=== PATIENT | female | born 1990 | race Hispanic/Latino ===

== ENCOUNTER → 2023-03-26 14:58 | Outpatient (REF) | payer OTHER, SELFPAY | LOC: PNTC 14:58 | PROVIDERS: ATTENDING PHYSICIAN Nurse Practitioner Family | DX: O36.80X0 Pregnancy with inconclusive fetal viability, not applicable or unspecified (principal) | CPT/HCPCS: 76801; 76813 ==

== ENCOUNTER → 2023-05-22 09:20 | Outpatient (REF) | payer OTHER, SELFPAY | LOC: PNTC 09:20 | PROVIDERS: ATTENDING PHYSICIAN Obstetrics & Gynecology | DX: Z36.0 Encounter for antenatal screening for chromosomal anomalies (principal); Z36.82 Encounter for antenatal screening for nuchal translucency | CPT/HCPCS: 76811 ==

== ENCOUNTER → 2023-06-19 11:03 | Outpatient (REF) | payer OTHER, SELFPAY | LOC: PNTC 11:03 | PROVIDERS: ATTENDING PHYSICIAN Obstetrics & Gynecology | DX: O98.519 Other viral diseases complicating pregnancy, unspecified trimester (principal); U07.1 COVID-19 | CPT/HCPCS: 76816 ==

== ENCOUNTER → 2023-07-30 11:17 | Outpatient (REF) | payer OTHER, SELFPAY | LOC: PNTC 11:17 | PROVIDERS: ATTENDING PHYSICIAN Obstetrics & Gynecology | DX: O98.519 Other viral diseases complicating pregnancy, unspecified trimester (principal) | CPT/HCPCS: 76816 ==

== ENCOUNTER 2023-08-19 19:55 | Observation (INO) | payer OTHER, SELFPAY ==
[2023-08-19] VITALS (9 sets, daily range): BP systolic 82–116; BP diastolic 45–83; BMI 29.5
[2023-08-19 13:29] LABS: % Basophils 0.2 % (0-2); % Eosinophils 0.1 % (0-6); % Immature Granulocytes 1.7 % (0-0.5); % Lymphocytes 18.2 % (20.5-51.1); % Monocytes 7.1 % (1.7-9.3); % Neutrophils 72.7 % (42.2-75.2); Absolute Immature Granulocytes 0.2 10^3/uL (0-0.05); Absolute Lymphocytes 1.6 10^3/uL (1.2-3.4); Absolute Monocytes 0.6 10^3/uL (0.1-0.6); Absolute Neutrophils 6.3 10^3/uL (1.4-6.5); Hematocrit 30.8 % (37.0-47.0); Hemoglobin 10.7 g/dL (12.0-16.0); Mean Corp Hgb Conc. 34.7 g/dL (33.0-37.0); Mean Corpuscular Hgb 27.5 pg (27.0-31.0); Mean Corpuscular Volume 79.2 fL (81.0-99.0); Mean Platelet Volume 10.3 fL (7.4-10.4); Nucleated Red Blood Cells % 0 %; Platelet Count 192 10^3/uL (130-400); Red Blood Cell Count 3.89 10^6/uL (4.20-5.40); Red Cell Dist. Width 12.8 % (11.5-14.5); White Blood Cell Count 8.6 10^3/uL (4.8-10.8)
[2023-08-19 13:35] LABS: ALT (SGPT) 16 U/L (0-35); AST (SGOT) 22 U/L (14-36); Albumin 3.3 g/dl (3.5-5.0); Alkaline Phosphatase 117 U/L (38-126); Blood Urea Nitrogen 8 mg/dl (7-17); Calcium 8.9 mg/dl (8.4-10.2); Carbon Dioxide 21 mmol/L (22-30); Chloride 106 mmol/L (98-107); Estimated Creatinine Clearance 124 ml/min; Glucose 98 mg/dl (70-99); Potassium 3.9 mmol/L (3.5-5.1); Sodium 134 mmol/L (135-145); Total Bilirubin 0.3 mg/dl (0.2-1.3); Total Protein 5.9 g/dl (6.3-8.2); eGFR > 60.00
[2023-08-19] MEDS: SOLU-CORTEF 200 MG IV (17:51)
[2023-08-19] MEDS: BENADRYL 50 MG IV (17:52)
--- NOTE | 2023-08-19 19:27 | ED.GENMED ---
History of Present Illness
General
Chief Complaint: Breathing Problem
Source: patient
Exam Limitations: altered mental status
Time Seen by Provider: 08/19/23 12:49
History of Present Illness
History of Present Illness:
Patient to ED with complaint of worsening SOB. States symptoms started 'weeks ago'. She was evaluated by PCP and OB without abnormal findings. SHe now reports intermittent CP and dizziness with SOB. Brought self to ED for eval. SHe is 35 weeks
.
Past History
Past History
ED Past Medical History: Seizures
ED Past Surgical History: None
Social History
Tobacco: Smoker
Alcohol: Occasional
Drug: None
Personal: Single
Living: with family
Review of Systems
Review of Systems
Allergies reviewed?: Yes
All Other Systems: ROS reviewed and negative except as documented in HPI and ROS
Constitutional: Reports no symptoms
EENT: Reports no symptoms
Respiratory: Reports trouble breathing
Cardiac: Reports chest pain
ABD/GI: Reports no symptoms
: Reports no symptoms
Musculoskeletal: Reports no symptoms
Skin: Reports no symptoms
Neurological: Reports no symptoms
Psychiatric: Reports no symptoms
Phy Exam
General Physical Exam
General Presentation: well appearing and no apparent distress
General age: appears stated age
General Skin: warm
General Habitus: normal
Cardiovascular Exam
Cardiovascular Exam: regular rate/rhythm and no edema
Pulmonary Exam
Pulmonary Exam: lungs clear and no respiratory distress
Cough: no cough
Gastrointestinal Exam
Gastrointestinal Exam: non tender, soft and other (FHT 140)
Musculoskeletal Exam
Musculoskeletal Exam: full ROM and neuro vasc intact
Skin Exam
Skin Exam: normal color, warm/dry and no rash
Psychiatric Exam
Psychiatric Exam: normal mood/affect
Course
Orders/Labs/Results
Orders:
Orders
08/19/23 12:56
US Periph Venous LOWER Ext [place] Urgent
Comment:
Reason For Exam: SOB, tachycardia, CP
08/19/23 12:57
Electrocardiogram (*1) Urgent
Reason for Study: Chest Pain
EKG- Treatment ONCE
CR Chest - 2 Views Urgent
Comment:
Reason For Exam: SOB, CP
08/19/23 13:12
Complete Blood Count/With Diff Urgent
Comprehensive Metabolic Panel Urgent
D-Dimer Urgent
08/19/23 16:34
CT Chest Pe Study Urgent
Comment:
Reason For Exam: chest pain SOB, 35 weejs pregnnt
08/19/23 17:43
Diphenhydramine [Benadryl] 50 mg IV NOW STA
Hydrocortisone Sod Succinate [Solu-Cortef] 200 mg IV NOW STA
Abnormal Lab Results
08/19/23
13:12
RBC 3.89 L 10^6/uL
(4.20-5.40)
Hgb 10.7 L g/dL
(12.0-16.0)
Hct 30.8 L %
(37.0-47.0)
MCV 79.2 L fL
(81.0-99.0)
Abs Immat Gran (auto) 0.2 H 10^3/uL
(0-0.05)
Immature Gran % 1.7 H %
(0-0.5)
Lymphocytes % 18.2 L %
(20.5-51.1)
D-Dimer 0.80 H ug/mlFEU
(0.00-0.50)
Sodium 134 L mmol/L
(135-145)
Carbon Dioxide 21 L mmol/L
(22-30)
Creatinine 0.4 L mg/dL
(0.6-1.0)
Total Protein 5.9 L g/dl
(6.3-8.2)
Albumin 3.3 L g/dl
(3.5-5.0)
08/19/23 13:12
08/19/23 13:12
Vital Signs
Initial and Last Documented VS:
Initial Vital Signs
Temp Pulse Resp BP Pulse Ox
98.2 F 117 16 110/71 98
08/19/23 12:22 08/19/23 12:22 08/19/23 12:22 08/19/23 12:22 08/19/23 12:22
Last Documented Vital Signs
Temp Pulse Resp BP Pulse Ox
98.1 F 94 18 107/68 100
08/19/23 20:25 08/19/23 20:25 08/19/23 20:25 08/19/23 20:25 08/19/23 18:43
*Radiology
Radiology exam reviewed: radiology read reviewed
*Pulse Oximetry
Patient hypoxic: no
*Critical Care Note
Total Time (30-74mins, 75-104mins- exclusive of procedures): Not Applicable
Update Note
Update Note:
Case discussed with Dr. Portillo. Ok for CT. Dr. Portillo requesting Stress test following from discharge from ED. Patient is discharged from ED and will follow up in L&D now.
ED Attending Note
-
Portions of this chart may have been created with voice recognition software.� Occasional wrong word or��sound alike� substitutions may have occurred due to the inherent limitations of voice recognition software.
Discharge Plan
Departure
Patient Disposition: Home (Routine Discharge)
Date of Disposition: 08/19/23
Time of Disposition: 20:04
Patient with high blood pressure during this ER visit?: No
Condition: Good
Covid-19: Not Applicable
Discharge Problem:
Shortness of breath due to in third trimester
Interventions
Interventions:
*Risk Screen - Suicide Last Done: 08/19/23 20:25
*General Assessment Last Done: 08/19/23 12:22
*Neglect/Abuse Screening Last Done: 08/19/23 12:22
ED- Fall Risk Assessment Last Done: 08/19/23 13:00
*ED COVID-19 Vaccine History Last Done: 08/19/23 15:13
*Nursing Disposition Last Done: 08/19/23 20:11
ED- Cardiac Assessment Last Done: 08/19/23 13:00
ED- Pulmonary Assessment Last Done: 08/19/23 13:00
Discharge Date and Time
Discharge Date/Time: 08/19/23 20:13
== END 2023-08-19 21:36 | disposition home or self-care (01) ==
LOC: LDRP 19:55
PROVIDERS: Nurse Practitioner; ADMITTING PHYSICIAN Obstetrics & Gynecology; EMERGENCY PHYSICIAN Student in an Organized Health Care Education/Training Program; FAMILY PHYSICIAN Family Medicine
DX: O99.891 Other specified diseases and conditions complicating pregnancy (principal); R06.02 Shortness of breath; R07.9 Chest pain, unspecified; R00.0 Tachycardia, unspecified; Z3A.34 34 weeks gestation of pregnancy; Z91.041 Radiographic dye allergy status; O99.353 Diseases of the nervous system complicating pregnancy, third trimester; G40.909 Epilepsy, unspecified, not intractable, without status epilepticus
CPT/HCPCS: 59025; 71046; 71275; 80053; 85025; 85379; 93005; 93970; 96374; 96375; 99285; G0378; Q9967

== ENCOUNTER 2023-09-12 17:31 | Observation (INO) | payer OTHER, SELFPAY ==
[2023-09-12 17:41] VITALS: BP 108/72; BMI 29.8
[2023-09-12 18:26] LABS: Hematocrit 28.6 % (37.0-47.0); Hemoglobin 9.8 g/dL (12.0-16.0); Mean Corp Hgb Conc. 34.3 g/dL (33.0-37.0); Mean Corpuscular Hgb 26.7 pg (27.0-31.0); Mean Corpuscular Volume 77.9 fL (81.0-99.0); Mean Platelet Volume 10.1 fL (7.4-10.4); Platelet Count 168 10^3/uL (130-400); Red Blood Cell Count 3.67 10^6/uL (4.20-5.40); Red Cell Dist. Width 13.5 % (11.5-14.5); White Blood Cell Count 9.9 10^3/uL (4.8-10.8)
[2023-09-12 18:29] LABS: Urine Albumin Negative (Neg - Trace); Urine Bilirubin 1+ (Negative); Urine Character Clear (Clear); Urine Color Yellow; Urine Glucose Negative (Negative); Urine Ketone Trace (Negative); Urine Leukocyte 1+ (Negative); Urine Nitrite Negative (Negative); Urine Occult Blood Negative (Negative); Urine Specific Gravity 1.015 (<1.030); Urine Urobilinogen Negative (Neg - 1+)
[2023-09-12 18:42] LABS: ALT (SGPT) 18 U/L (0-35); AST (SGOT) 35 U/L (14-36); Albumin 3.1 g/dl (3.5-5.0); Alkaline Phosphatase 145 U/L (38-126); Blood Urea Nitrogen 7 mg/dl (7-17); Calcium 8.5 mg/dl (8.4-10.2); Carbon Dioxide 24 mmol/L (22-30); Chloride 105 mmol/L (98-107); Estimated Creatinine Clearance 124 ml/min; Glucose 101 mg/dl (70-99); Potassium 3.6 mmol/L (3.5-5.1); Sodium 134 mmol/L (135-145); Total Bilirubin 0.3 mg/dl (0.2-1.3); Total Protein 5.6 g/dl (6.3-8.2); eGFR > 60.00
[2023-09-12 18:48] LABS: Urine Red Blood Cell 0-2 /HPF (0-2); Urine Squamous Cell >30 /LPF (Few)
[2023-09-12 19:02] LABS: Protein/creatinine Ratio 0.1; Urine Protein 7 mg/dl
== END 2023-09-12 19:22 | disposition home or self-care (01) ==
LOC: LDRP 17:31
PROVIDERS: ADMITTING PHYSICIAN Obstetrics & Gynecology; FAMILY PHYSICIAN Obstetrics & Gynecology
DX: G40.509 Epileptic seizures related to external causes, not intractable, without status epilepticus (principal); G40.909 Epilepsy, unspecified, not intractable, without status epilepticus; Z3A.38 38 weeks gestation of pregnancy; O99.353 Diseases of the nervous system complicating pregnancy, third trimester; T42.6X6A Underdosing of other antiepileptic and sedative-hypnotic drugs, initial encounter; Z91.138 Patient's unintentional underdosing of medication regimen for other reason; Y92.003 Bedroom of unspecified non-institutional (private) residence as the place of occurrence of the external cause; O99.013 Anemia complicating pregnancy, third trimester; D64.9 Anemia, unspecified; Z91.041 Radiographic dye allergy status; Z86.16 Personal history of COVID-19
CPT/HCPCS: 59025; 80053; 81003; 81015; 82570; 84156; 85027; G0378

== ENCOUNTER 2023-09-23 20:21 | Inpatient (IN) | payer OTHER, SELFPAY ==
[2023-09-23 20:48] VITALS: BP 108/70; BMI 30.4
[2023-09-23 21:09] LABS: % Basophils 0.2 % (0-2); % Eosinophils 0.2 % (0-6); % Immature Granulocytes 1.5 % (0-0.5); % Lymphocytes 20.7 % (20.5-51.1); % Monocytes 6.7 % (1.7-9.3); % Neutrophils 70.7 % (42.2-75.2); Absolute Immature Granulocytes 0.1 10^3/uL (0-0.05); Absolute Lymphocytes 1.9 10^3/uL (1.2-3.4); Absolute Monocytes 0.6 10^3/uL (0.1-0.6); Absolute Neutrophils 6.6 10^3/uL (1.4-6.5); Hematocrit 30.6 % (37.0-47.0); Hemoglobin 10.7 g/dL (12.0-16.0); Mean Corpuscular Hgb 26.6 pg (27.0-31.0); Mean Corpuscular Volume 75.9 fL (81.0-99.0); Mean Platelet Volume 10.8 fL (7.4-10.4); Nucleated Red Blood Cells % 0 %; Platelet Count 191 10^3/uL (130-400); Red Blood Cell Count 4.03 10^6/uL (4.20-5.40); Red Cell Dist. Width 13.9 % (11.5-14.5); White Blood Cell Count 9.4 10^3/uL (4.8-10.8)
[2023-09-23] MEDS: CYTOTEC 50 MICROGRAM VAG (21:24)
[2023-09-24] MEDS: MORPHINE SULFATE 2 MG IV (01:41)
[2023-09-24] MEDS: LR 1000 IV ×4 (02:15→09:00)
[2023-09-24] MEDS: SUBLIMAZE 100 MCG EPIDURAL (02:29)
[2023-09-24] MEDS: FENTANYL/BUPIVACAINE 100 EPIDURAL (02:36)
[2023-09-24] MEDS: BENADRYL 25 MG IV (04:37)
[2023-09-24] MEDS: KEPPRA 500 MG PO (07:44)
[2023-09-24] MEDS: PITOCIN 30 UNITS/NSS 500 ML IV (09:32)
[2023-09-24 09:48] LABS: Cord ABG Comment CORD BLOOD
[2023-09-24 09:48] LABS: Cord ABG Comment CORD BLOOD
[2023-09-24 09:55] LABS: B.E. Cord ABG -9.6 mMOL/L; HCO3 Cord ABG 20.8 mmol/L; O2 Saturation % Cord ABG 47.6 %; PCO2 Cord ABG 64 mmHg; PO2 Cord ABG 29 mmHg; pH Cord ABG 7.12
[2023-09-24 09:59] LABS: B.E. Cord ABG -5.8 mMOL/L; HCO3 Cord ABG 21.9 mmol/L; O2 Saturation % Cord ABG 12.9 %; PCO2 Cord ABG 50 mmHg; PO2 Cord ABG 10 mmHg; pH Cord ABG 7.25
[2023-09-24] MEDS: TYLENOL 650 MG PO ×2 (20:09→23:39)
[2023-09-24] MEDS: MOTRIN 600 MG PO (20:09)
[2023-09-25 03:45] LABS: Hematocrit 28.4 % (37.0-47.0); Hemoglobin 9.7 g/dL (12.0-16.0)
[2023-09-25] MEDS: KEPPRA 500 MG PO (07:56)
[2023-09-25] MEDS: FEOSOL 325 MG PO (07:56)
[2023-09-25] MEDS: MOTRIN 600 MG PO ×2 (08:01→16:05)
[2023-09-25] MEDS: TYLENOL 650 MG PO ×2 (08:02→16:05)
[2023-09-25] MEDS: PRENATAL PLUS 1 TABLET PO (08:06)
[2023-09-25 13:50] LABS: Syphilis/T. pallidum Ab Reflex Negative (Negative)
[2023-09-26] MEDS: MOTRIN 600 MG PO (07:11)
[2023-09-26] MEDS: TYLENOL 650 MG PO (07:12)
[2023-09-26] MEDS: FEOSOL 325 MG PO (08:08)
[2023-09-26] MEDS: KEPPRA 500 MG PO (08:08)
[2023-09-26] MEDS: PRENATAL PLUS 1 TABLET PO (08:08)
== END 2023-09-26 18:48 | disposition home or self-care (01) | DRG 807 ==
LOC: LDRP 20:21
PROVIDERS: Obstetrics & Gynecology; ADMITTING PHYSICIAN Obstetrics & Gynecology; FAMILY PHYSICIAN Obstetrics & Gynecology
PROC: 10E0XZZ Delivery of Products of Conception, External Approach (ICD-10-PCS; 2023-09-24)
DX: O99.354 Diseases of the nervous system complicating childbirth (principal); Z37.0 Single live birth; O66.0 Obstructed labor due to shoulder dystocia; O77.0 Labor and delivery complicated by meconium in amniotic fluid; O76 Abnormality in fetal heart rate and rhythm complicating labor and delivery; G40.909 Epilepsy, unspecified, not intractable, without status epilepticus; Z3A.39 39 weeks gestation of pregnancy
CPT/HCPCS: 88307; 82803; 85014; 85018; 85025; 86780; 86850; 86900; 86901

== ENCOUNTER 2024-02-11 10:34 | Emergency (ER) | payer OTHER, SELFPAY ==
[2024-02-11 10:36] VITALS: BP 141/84
[2024-02-11 11:09] VITALS: BMI 24.6
--- NOTE | 2024-02-11 11:14 | ED.GENMED ---
History of Present Illness
General
Chief Complaint: Abdominal Symptoms
Source: patient and family
Exam Limitations: none
Time Seen by Provider: 02/11/24 10:57
Nursing documentation reviewed up to this point in time: agreed with
History of Present Illness
History of Present Illness:
33-year-old female with past history of seizures, asthma presenting to the emergency department today with concerns of nausea vomiting diarrhea body aches starting last night worsening today. Multiple episodes of vomiting diarrhea today. Denies
any chest pain shortness of breath. No abdominal pain.
Past History
Past History
ED Past Medical History: Seizures
ED Past Surgical History: None
Social History
Tobacco: Smoker
Alcohol: Occasional
Drug: None
Personal: Single
Living: with family
Review of Systems
Review of Systems
Allergies reviewed?: Yes
All Other Systems: ROS reviewed and negative except as documented in HPI and ROS
Phy Exam
Physical Exam
Physical Exam:
GENERAL: Alert , in no apparent distress
EYE: pupils equal and reactive
NECK: Supple, no significant adenopathy.
ENT: o/p clr, mmm.
CARDIAC: Regular rate and rhythm .
LUNGS: Clear breath sounds bilaterally, no acute respiratory distress, no wheezes/rales/rhonchi
ABDOMEN: Soft, without focal tenderness, no r/g, no cvat
NEUROLOGICAL: Alert and oriented, no focal neuro deficits
SKIN: Warm and dry, skin intact.
MUSCULOSKELETAL: No edema, well perfused.
PSYCH: Normal and appropriate interaction.
Course
Orders/Labs/Results
Orders:
Orders
02/11/24 11:06
0.9% Sodium Chloride 1000 ml [Nss] 1,000 ml IV BOLUS
Famotidine [Pepcid] 20 mg IV NOW STA
Ondansetron Injectable [Zofran] 4 mg IV NOW STA
Test Result ONCE
02/11/24 11:24
Complete Blood Count/With Diff Urgent
Comprehensive Metabolic Panel Urgent
HCG, Serum Qualitative Screen Urgent
Lipase Urgent
Urinalysis Reflex To Culture Urgent
Date Specimen was Collected: 02/11/24
Time Specimen was Collected: 11:07
Urine Microscopic Reflex Cult Urgent
Urine Culture Urgent
ALBERTO Source: U
Specimen Description:
Date Specimen was Collected: 02/11/24
Time Specimen was Collected: 11:07
Abnormal Lab Results
02/11/24
11:24
WBC 11.5 H 10^3/uL
(4.8-10.8)
Abs Immat Gran (auto) 0.1 H 10^3/uL
(0-0.05)
Absolute Neuts (auto) 10.5 H 10^3/uL
(1.4-6.5)
Absolute Lymphs (auto) 0.7 L 10^3/uL
(1.2-3.4)
Neutrophils % 90.5 H %
(42.2-75.2)
Lymphocytes % 6.2 L %
(20.5-51.1)
Carbon Dioxide 21 L mmol/L
(22-30)
Glucose 100 H mg/dl
(70-99)
Albumin 5.3 H g/dl
(3.5-5.0)
Urine Ketones 3+ A
(Negative)
Ur Occult Blood Reflex 1+ A
(Negative)
Leukocyte Esterase Rfl 1+ A
(Negative)
Urine Bacteria (Reflex) Many A
(Negative)
02/11/24 11:24
02/11/24 11:24
Vital Signs
Initial and Last Documented VS:
Initial Vital Signs
Temp Pulse Resp BP Pulse Ox
99.7 F 111 18 141/84 98
02/11/24 10:36 02/11/24 10:36 02/11/24 10:36 02/11/24 10:36 02/11/24 10:36
Last Documented Vital Signs
Temp Pulse Resp BP Pulse Ox
99.7 F 74 18 141/84 98
02/11/24 10:36 02/11/24 12:00 02/11/24 10:36 02/11/24 10:36 02/11/24 12:00
MDM/Problems Addressed
MDM/Problems Addressed:
33-year-old female presenting to the emergency department today with concerns of nausea vomiting diarrhea body aches starting last night progressing today. Here patient generally well-appearing no distress mildly tachycardic on arrival low-grade
temperature otherwise vital signs are normal. No abdominal pain to palpation. Symptoms seem to be consistent with stomach bug. Symptomatic treatment initiated. Significant improvement in symptoms after receiving Zofran and fluids. Patient
previously open discharge at this time return precautions given.
*Critical Care Note
Total Time (30-74mins, 75-104mins- exclusive of procedures): Not Applicable
ED Attending Note
-
Portions of this chart may have been created with voice recognition software.� Occasional wrong word or��sound alike� substitutions may have occurred due to the inherent limitations of voice recognition software.
Discharge Plan
Departure
Patient Disposition: Home (Routine Discharge)
Date of Disposition: 02/11/24
Time of Disposition: 12:26
Patient with high blood pressure during this ER visit?: No
Condition: Good
Covid-19: Not Applicable
Discharge Problem:
Vomiting and diarrhea
Instructions: Nausea and Vomiting, Adult (DC)
Prescriptions:
New
ondansetron 4 mg tablet,disintegrating
4 mg PO Q6H PRN (Reason: nausea and vomiting) Qty: 7 0RF
No Action
levetiracetam 500 MG tablet
500 mg PO DAILY
1 tab PO DAILY
choline
300 mg PO DAILY
ibuprofen 200 mg tablet
600 mg PO Q6HPRN PRN (Reason: moderate pain/cramps) Qty: 0 0RF
acetaminophen 325 mg Tablet
650 mg PO Q4HPRN PRN (Reason: mild pain) Qty: 0 0RF
Referrals:
UNKNOWN - PT DOES,NOT KNOW [Family Provider] -
Activity Restrictions/Additional Instructions:
You came to the emergency department today with concerns of symptoms likely consistent with a stomach bug potentially norovirus. Please take the Zofran as needed and progress your diet as able. Return to the emergency department for any worsening,
new or concerning symptoms.
Interventions
Interventions:
*Risk Screen - Suicide Last Done: 02/11/24 10:36
*General Assessment Last Done: 02/11/24 10:36
*Neglect/Abuse Screening Last Done: 02/11/24 10:36
Discharge Date and Time
Print Language: TANZANIAN
[2024-02-11] MEDS: ZOFRAN 4 MG IV (11:19)
[2024-02-11] MEDS: NSS 1000 IV (11:19)
[2024-02-11] MEDS: PEPCID 20 MG IV (11:21)
[2024-02-11 11:35] LABS: % Basophils 0.3 % (0-2); % Immature Granulocytes 0.4 % (0-0.5); % Lymphocytes 6.2 % (20.5-51.1); % Monocytes 2.6 % (1.7-9.3); % Neutrophils 90.5 % (42.2-75.2); Absolute Immature Granulocytes 0.1 10^3/uL (0-0.05); Absolute Lymphocytes 0.7 10^3/uL (1.2-3.4); Absolute Monocytes 0.3 10^3/uL (0.1-0.6); Absolute Neutrophils 10.5 10^3/uL (1.4-6.5); Hematocrit 45.5 % (37.0-47.0); Hemoglobin 15.6 g/dL (12.0-16.0); Mean Corp Hgb Conc. 34.3 g/dL (33.0-37.0); Mean Corpuscular Hgb 29.4 pg (27.0-31.0); Mean Corpuscular Volume 85.7 fL (81.0-99.0); Mean Platelet Volume 9.9 fL (7.4-10.4); Nucleated Red Blood Cells % 0 %; Platelet Count 267 10^3/uL (130-400); Red Blood Cell Count 5.31 10^6/uL (4.20-5.40); Red Cell Dist. Width 13.8 % (11.5-14.5); Urine Albumin Trace (Neg - Trace); Urine Bilirubin Negative (Negative); Urine Character Clear (Clear); Urine Color Yellow; Urine Glucose Negative (Negative); Urine Ketone 3+ (Negative); Urine Leukocyte 1+ (Negative); Urine Nitrite Negative (Negative); Urine Occult Blood 1+ (Negative); Urine Urobilinogen Negative (Neg - 1+); White Blood Cell Count 11.5 10^3/uL (4.8-10.8)
[2024-02-11 11:48] LABS: HCG, Serum Qualitative Screen Negative
[2024-02-11 11:51] LABS: ALT (SGPT) 16 U/L (0-35); AST (SGOT) 26 U/L (14-36); Albumin 5.3 g/dl (3.5-5.0); Alkaline Phosphatase 97 U/L (38-126); Blood Urea Nitrogen 7 mg/dl (7-17); Calcium 9.6 mg/dl (8.4-10.2); Carbon Dioxide 21 mmol/L (22-30); Chloride 103 mmol/L (98-107); Estimated Creatinine Clearance 102 ml/min; Glucose 100 mg/dl (70-99); Lipase 63 U/L (23-300); Potassium 3.8 mmol/L (3.5-5.1); Sodium 138 mmol/L (135-145); Total Bilirubin 0.9 mg/dl (0.2-1.3); eGFR > 60.00
[2024-02-11 12:11] LABS: Urine Squamous Cell >30 /LPF (Few)
[2024-02-11 12:12] LABS: Urine Bacteria Many (Negative); Urine Red Blood Cell 0-2 /HPF (0-2)
[2024-02-11 12:42] VITALS: BP 121/86
== END 2024-02-11 12:58 | disposition home or self-care (01) ==
LOC: EMR 10:34
PROVIDERS: Physician Assistant; EMERGENCY PHYSICIAN Emergency Medicine
DX: R11.2 Nausea with vomiting, unspecified (principal); R19.7 Diarrhea, unspecified; J45.909 Unspecified asthma, uncomplicated; F17.200 Nicotine dependence, unspecified, uncomplicated
CPT/HCPCS: 96374; 96375; 96361; 99284; 80053; 81003; 81015; 83690; 84703; 85025; 87086